=== PATIENT | male | born 1955 | race Caucasian/White ===

== ENCOUNTER 2018-03-12 13:32 | Outpatient (CLI) | payer MEDICARE | END 2018-03-12 13:33 | disposition home or self-care (01) | LOC: LAB.F 13:32 | PROVIDERS: ATTEND Internal Medicine Rheumatology | DX: M54.42 Lumbago with sciatica, left side (principal); Z79.51 Long term (current) use of inhaled steroids; M79.7 Fibromyalgia; M75.101 Unspecified rotator cuff tear or rupture of right shoulder, not specified as traumatic | CPT/HCPCS: 36415; 84550 ==

== ENCOUNTER 2018-08-04 12:03 | Outpatient (CLI) | payer MEDICARE ==
[2018-08-04 18:22] LABS: HB2 TOTAL 14.7 g/dL; HEMOGLOBIN A1C 0.43 g/dL; HEMOGLOBIN A1C % 4.8 % (4.6-6.2)
[2018-08-04 18:48] LABS: ALBUMIN/GLOBULIN RATIO 1.3 (1.0-2.2); BILIRUBIN,TOTAL 0.4 mg/dL (0.2-1.0); CALCIUM 9.1 mg/dL (8.5-10.3); CREATININE 0.7 mg/dL (0.6-1.2)
[2018-08-04 18:59] LABS: PLATELET MORPHOLOGY 1+ LARGE PLATELETS (NORMAL); RBC MORPHOLOGY (MULTIPLE) NORMAL APPEARANCE (NORMAL)
[2018-08-04 19:00] LABS: PLATELET ESTIMATE, MANUAL INCREASED (>450,000) (NORMAL)
[2018-08-04 19:02] LABS: BASOPHILS # (AUTO) 0.1 10^3/uL (0.0-0.1); BASOPHILS % (AUTO) 1.1 %; EOSINOPHILS # (AUTO) 0.1 10^3/uL (0.0-0.7); EOSINOPHILS % (AUTO) 0.6 %; LYMPHOCYTES % (AUTO) 9.1 %; MEAN CORPUSCULAR HEMOGLOBIN 27.5 pg (27.0-31.0); MEAN CORPUSCULAR HGB CONC 33.9 g/dL (32.0-36.0); MEAN CORPUSCULAR VOLUME 81.2 fL (80.0-94.0); MEAN PLATELET VOLUME 7.4 fL (7.4-11.4); MONOCYTES # (AUTO) 0.8 10^3/uL (0.0-1.0); MONOCYTES % (AUTO) 7.4 %; NEUTROPHILS # (AUTO) 9.2 10^3/uL (1.5-6.6); NEUTROPHILS % (AUTO) 81.8 %; PLT - PLATELET COUNT 791 10^3/uL (130-450); RED BLOOD COUNT 5.08 10^6/uL (4.70-6.10); RED CELL DISTRIBUTION WIDTH 14.6 % (12.0-15.0); WHITE BLOOD COUNT 11.2 x10^3/uL (4.8-10.8)
== END 2018-08-04 12:04 ==
LOC: LAB.S 12:03
PROVIDERS: ATTEND Nurse Practitioner Family
DX: R53.83 Other fatigue (principal); R06.00 Dyspnea, unspecified; Z13.1 Encounter for screening for diabetes mellitus; M53.9 Dorsopathy, unspecified; Z79.51 Long term (current) use of inhaled steroids; M54.42 Lumbago with sciatica, left side; M79.7 Fibromyalgia; M75.101 Unspecified rotator cuff tear or rupture of right shoulder, not specified as traumatic; D47.3 Essential (hemorrhagic) thrombocythemia
CPT/HCPCS: 36415; 80053; 82728; 83036; 84443; 85025; 85610; 85651

== ENCOUNTER 2018-10-08 13:27 | Outpatient (CLI) | payer MEDICARE ==
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
== END 2018-10-08 13:28 | disposition home or self-care (01) ==
LOC: DI 13:27
PROVIDERS: ATTEND Nurse Practitioner Family
DX: Z79.51 Long term (current) use of inhaled steroids (principal)
CPT/HCPCS: 77080

== ENCOUNTER 2018-12-12 16:11 | Outpatient (CLI) | payer MEDICARE ==
--- NOTE | 2018-12-13 22:19 | XRAY Report ---
Reason: KNEE JOINT PAIN > 3 MONTHS,RIGHT Procedure Date: 12/12/2018 Accession Number: [id number] / [id number] Procedure: XR - Knee 4 View RT CPT Code: FULL RESULT: EXAM: RIGHT KNEE RADIOGRAPHY EXAM DATE: 12/12/2018 05:29 PM. CLINICAL HISTORY: Right knee pain x3 months. COMPARISON: None. TECHNIQUE: 4 views. FINDINGS: Bones: No fracture or bone lesion. Joints: Normal alignment. Minimal osteophytosis along the lateral tibial spine and in the patellofemoral compartment. Joint spaces are maintained. A trace suprapatellar effusion is present. Soft Tissues: Unremarkable. IMPRESSION: 1. Minimal degenerative changes in the lateral and patellofemoral compartments. 2. Trace knee effusion. 3. No acute bony abnormality. RADIA
== END 2018-12-12 16:12 | disposition home or self-care (01) ==
LOC: DI 16:11
PROVIDERS: ATTEND Nurse Practitioner Family
DX: M17.11 Unilateral primary osteoarthritis, right knee (principal)

== ENCOUNTER 2019-04-16 10:45 | Outpatient (CLI) | payer MEDICARE ==
[2019-04-16 18:03] LABS: ALBUMIN 3.9 g/dL (3.2-5.5); ALBUMIN/GLOBULIN RATIO 1.3 (1.0-2.2); ALKALINE PHOSPHATASE 56 IU/L (42-121); ALT ALANINE AMINOTRANSFERASE 16 IU/L (10-60); AST ASPARTATE AMINOTRANSFERASE 15 IU/L (10-42); BILIRUBIN,TOTAL 0.7 mg/dL (0.2-1.0); BUN - BLOOD UREA NITROGEN 19 mg/dL (6-20); CARBON DIOXIDE - CO2 27 mmol/L (21-32); CHLORIDE 103 mmol/L (101-111); CHOLESTEROL 234 mg/dL; CREATININE 1.1 mg/dL (0.6-1.2); GFR - MDRD 67 (>89); GLUCOSE 98 mg/dL (70-100); HDL CHOLESTEROL 47 mg/dL; LDL CHOLESTEROL,CALCULATED 170 mg/dL; LDL/HDL RATIO 3.6 (<3.6); SODIUM 141 mmol/L (135-145); VLDL CHOLESTEROL 17 mg/dL
[2019-04-16 18:05] LABS: PSA SCREEN (Z12.5) 0.19 ng/mL (0.000-2.000)
[2019-04-16 18:57] LABS: BASOPHILS # (AUTO) 0.1 10^3/uL (0.0-0.1); BASOPHILS % (AUTO) 0.7 %; EOSINOPHILS # (AUTO) 0.1 10^3/uL (0.0-0.7); EOSINOPHILS % (AUTO) 1.4 %; LYMPHOCYTES # (AUTO) 1.9 10^3/uL (1.5-3.5); LYMPHOCYTES % (AUTO) 24.5 %; MEAN CORPUSCULAR HEMOGLOBIN 26.8 pg (27.0-31.0); MEAN CORPUSCULAR HGB CONC 33.8 g/dL (32.0-36.0); MEAN CORPUSCULAR VOLUME 79.4 fL (80.0-94.0); MEAN PLATELET VOLUME 6.9 fL (7.4-11.4); MONOCYTES # (AUTO) 0.7 10^3/uL (0.0-1.0); MONOCYTES % (AUTO) 9.5 %; NEUTROPHILS % (AUTO) 63.9 %; PLT - PLATELET COUNT 659 10^3/uL (130-450); RED BLOOD COUNT 5.23 10^6/uL (4.70-6.10); WHITE BLOOD COUNT 7.8 x10^3/uL (4.8-10.8)
[2019-04-16 18:59] LABS: PLATELET ESTIMATE, MANUAL INCREASED (>450,000) (NORMAL)
== END 2019-04-16 10:46 | disposition home or self-care (01) ==
LOC: LAB.F 10:45
PROVIDERS: ATTEND Nurse Practitioner Family
DX: R53.81 Other malaise (principal); Z13.220 Encounter for screening for lipoid disorders; Z12.5 Encounter for screening for malignant neoplasm of prostate
CPT/HCPCS: 36415; 80061; 84403; G0103; 80053; 83721; 84153; 84443; 85025

== ENCOUNTER 2019-06-22 07:53 | Outpatient (CLI) | payer MEDICARE ==
[2019-06-22 10:33] LABS: BASOPHILS % (AUTO) 0.4 %; EOSINOPHILS % (AUTO) 0.5 %; HGB - HEMOGLOBIN 13.7 g/dL (14.0-18.0); LYMPHOCYTES # (AUTO) 1.9 10^3/uL (1.5-3.5); LYMPHOCYTES % (AUTO) 25.8 %; MEAN CORPUSCULAR HEMOGLOBIN 27.2 pg (27.0-31.0); MEAN CORPUSCULAR HGB CONC 33.2 g/dL (32.0-36.0); MEAN CORPUSCULAR VOLUME 81.9 fL (80.0-94.0); MEAN PLATELET VOLUME 9.6 fL (7.4-11.4); MONOCYTES # (AUTO) 0.7 10^3/uL (0.0-1.0); MONOCYTES % (AUTO) 9.1 %; NEUTROPHILS # (AUTO) 4.7 10^3/uL (1.5-6.6); NEUTROPHILS % (AUTO) 63.7 %; PLT - PLATELET COUNT 731 10^3/uL (130-450); RED BLOOD COUNT 5.04 10^6/uL (4.70-6.10); RED CELL DISTRIBUTION WIDTH 14.4 % (12.0-15.0); WHITE BLOOD COUNT 7.3 x10^3/uL (4.8-10.8)
[2019-06-22 10:44] LABS: ALBUMIN 3.8 g/dL (3.2-5.5); ALBUMIN/GLOBULIN RATIO 1.3 (1.0-2.2); ALKALINE PHOSPHATASE 53 IU/L (42-121); ALT ALANINE AMINOTRANSFERASE 15 IU/L (10-60); AST ASPARTATE AMINOTRANSFERASE 12 IU/L (10-42); BILIRUBIN,TOTAL 0.7 mg/dL (0.2-1.0); BUN - BLOOD UREA NITROGEN 23 mg/dL (6-20); CALCIUM 9.2 mg/dL (8.5-10.3); CARBON DIOXIDE - CO2 27 mmol/L (21-32); CHLORIDE 107 mmol/L (101-111); CHOL/HDL RATIO 4.2 (<5.0); CHOLESTEROL 225 mg/dL; CREATININE 1.1 mg/dL (0.6-1.2); GFR - MDRD 67 (>89); GLUCOSE 100 mg/dL (70-100); HDL CHOLESTEROL 53 mg/dL; LDL CHOLESTEROL,CALCULATED 150 mg/dL; LDL/HDL RATIO 2.8 (<3.6); SODIUM 145 mmol/L (135-145); TOTAL PROTEIN 6.7 g/dL (6.7-8.2); VLDL CHOLESTEROL 22 mg/dL
== END 2019-06-22 07:54 | disposition home or self-care (01) ==
LOC: LAB.S 07:53
PROVIDERS: ATTEND Internal Medicine
DX: Z00.00 Encounter for general adult medical examination without abnormal findings (principal); Z12.5 Encounter for screening for malignant neoplasm of prostate; D47.3 Essential (hemorrhagic) thrombocythemia
CPT/HCPCS: 36415; 80053; 80061; 85025; G0103; 83721; 84153

== ENCOUNTER 2019-07-06 17:16 | Emergency (ER) | payer MEDICARE ==
[2019-07-06] MEDS ORDERED: AMOX/CLAV 875 MG/125 MG TABLET PO STA (20:03)
[2019-07-06] MEDS ORDERED: IBUPROFEN 600 MG TABLET PO STA (20:04)
--- NOTE | 2019-07-06 20:07 | ED Physician Documentation ---
PD HPI HEENT - Stated complaint Stated Complaint: TOOTH PAIN - Chief complaint Chief Complaint: Heent - History obtained from History obtained from: Patient - History of Present Illness Timing - onset: Today Timing - details: Gradual onset Location: Tooth Improves: Nothing Associated symptoms: No: Fever, Congestion Recently seen: Not recently seen - Additional information Additional information: There is a 64-year-old man who presents with his complains that his teeth are coming apart. He has already had a root canal on this tooth and a crowned on the one in front of it 3 or 4 years ago. The tooth broke this morning now it feels really puffy does not have a whole lot of pain because he is Blake had a root canal. He is concerned that his throat might close to night while he sleeping because it so rapidly progressed. He is already having a little difficulty swallowing but is swallowing water here in the department. No fever. Both his dentist and doctor on vacation. Review of Systems Constitutional: denies: Fever Ears: denies: Ear pain Nose: denies: Congestion Throat: reports: Dental pain / toothache Respiratory: denies: Dyspnea PD PAST MEDICAL HISTORY - Past Medical History Cardiovascular: High cholesterol Respiratory: Asthma Neuro: Migraines Endocrine/Autoimmune: None GI: GERD, Hemorrhoids : None HEENT: Other Psych: Depression, Anxiety, Panic attacks, ADD/ADHD, Post traumatic stress disorder, Claustrophobia, Obsessive compulsive disorder Musculoskeletal: Osteoarthritis, Fibromyalgia, Fatigue, Chronic back pain Derm: Other - Past Surgical History Ortho: Other HEENT: Detached retina repair, Tonsil/Adenoidectomy - Present Medications Home Medications: Ambulatory Orders Medication Instructions Recorded Confirmed Albuterol Sulfate [Proair 2 inh ORAL Q4HR PRN 08/13/18 08/27/18 Respiclick] RX: Trazodone HCl 3 tab ORAL DAILY 08/13/18 08/27/18 diazePAM [Diazepam] 1 tab ORAL PRN PRN 08/13/18 08/27/18 predniSONE [Prednisone] 1 tab ORAL DAILY 08/13/18 08/27/18 Amox/Clav 875/125 [Augmentin] 1 each PO Q12H #20 tablet 07/06/19 RX: Amoxicillin 500 mg PO TID #30 capsule 07/06/19 - Allergies Allergies/Adverse Reactions: Allergies Allergy/AdvReac Type Severity Reaction Status Date / Time Iodine and Iodide Containing Allergy Anaphylaxis Verified 07/06/19 17:44 Produc shellfish derived Allergy Anaphylaxis Verified 07/06/19 17:44 Sulfa (Sulfonamide Allergy Anaphylaxis Verified 07/06/19 17:44 Antibiotics) venlafaxine Allergy Anaphylaxis Verified 07/06/19 17:44 - Social History Does the pt smoke?: No Smoking Status: Never smoker PD ED PE NORMAL - Vitals Vital signs reviewed: Yes - General General: Alert and oriented X 3, No acute distress, Well developed/nourished - HEENT HEENT: Atraumatic, Moist mucous membranes, Other (He has several cavities. The left maxillary most posterior molar looks like it is fractured. There is erythema and edema on hard palate and around the base of the tooth. He does not have a significant amount of pain.) - Neck Neck: Supple, no meningeal sign, No adenopathy - Respiratory Respiratory: No respiratory distress Results - Vitals Vitals: Vital Signs - 24 hr 07/06/19 07/06/19 17:43 20:38 Temperature 36.6 C 37.1 C Heart Rate 102 H 78 Respiratory 20 17 Rate Blood Pressure 134/88 H 141/71 H O2 Saturation 96 98 Oxygen O2 Source Room air PD MEDICAL DECISION MAKING - ED course Complexity details: d/w patient ED course: Patient will be placed on Augmentin and encouraged to use ibuprofen. He is concerned about the cost of the Augmentin and will be given a back-up prescription for amoxicillin if it is too expensive. Departure - Departure Disposition: 01 Home, Self Care Clinical Impression: Dental infection Condition: Good Instructions: ED Tooth Pain Follow-Up: Heron Ortega MD [Primary Care Provider] - Prescriptions: Amox/Clav 875/125 [Augmentin] 1 each PO Q12H #20 tablet RX: Amoxicillin 500 mg PO TID #30 capsule Comments: Salt water swishes 3 times a day. Take the Augmentin twice a day as prescribed. If it is too expensive he can fill the amoxicillin and take it 3 times a day. Use ibuprofen up to 3 to 4 tablets every 8 hours with food for the pain. Follow-up with your primary dentist for definitive care. Return if you have increasing swelling, fever, vomiting or other problems arise. Discharge Date/Time: 07/06/19 20:38
[2019-07-06 20:39] VITALS: BP 141/71
== END 2019-07-06 20:38 | disposition home or self-care (01) ==
LOC: ED 17:16
DX: K04.7 Periapical abscess without sinus (principal); K02.9 Dental caries, unspecified
CPT/HCPCS: 99282; 99283; A9270

== ENCOUNTER 2019-07-29 19:15 | Emergency (ER) | payer MEDICARE, OTHER ==
[2019-07-29 19:32] VITALS: BP 153/91
[2019-07-29] MEDS ORDERED: DEXAMETHASONE 10 MG/ML VIAL PO STA (22:45)
[2019-07-29] MEDS ORDERED: CHERRY SYRUP 10 ML UDC PO ONE (22:45)
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
== END 2019-07-29 23:07 | disposition home or self-care (01) ==
LOC: ED 19:15
DX: S10.93XA Contusion of unspecified part of neck, initial encounter (principal); S20.211A Contusion of right front wall of thorax, initial encounter; S60.221A Contusion of right hand, initial encounter; S80.12XA Contusion of left lower leg, initial encounter; S50.12XA Contusion of left forearm, initial encounter; M54.6 Pain in thoracic spine; Y04.2XXA Assault by strike against or bumped into by another person, initial encounter
CPT/HCPCS: 99282; A9270

== ENCOUNTER 2019-09-25 15:14 | Outpatient (CLI) | payer MEDICARE, OTHER ==
[2019-09-25 18:57] LABS: BASOPHILS % (AUTO) 0.5 %; EOSINOPHILS % (AUTO) 0.3 %; HGB - HEMOGLOBIN 13.5 g/dL (14.0-18.0); LYMPHOCYTES # (AUTO) 0.7 10^3/uL (1.5-3.5); LYMPHOCYTES % (AUTO) 9.7 %; MEAN CORPUSCULAR HEMOGLOBIN 26.2 pg (27.0-31.0); MEAN CORPUSCULAR HGB CONC 31.7 g/dL (32.0-36.0); MEAN CORPUSCULAR VOLUME 82.6 fL (80.0-94.0); MEAN PLATELET VOLUME 8.4 fL (7.4-11.4); MONOCYTES # (AUTO) 0.4 10^3/uL (0.0-1.0); MONOCYTES % (AUTO) 5.9 %; NEUTROPHILS # (AUTO) 6.2 10^3/uL (1.5-6.6); NEUTROPHILS % (AUTO) 83.1 %; RED BLOOD COUNT 5.16 10^6/uL (4.70-6.10); RED CELL DISTRIBUTION WIDTH 14.2 % (12.0-15.0); WHITE BLOOD COUNT 7.4 x10^3/uL (4.8-10.8)
[2019-09-25 19:33] LABS: CALCIUM 9.7 mg/dL (8.5-10.3)
[2019-09-25 20:06] LABS: ALBUMIN/GLOBULIN RATIO 1.1 (1.0-2.2); BILIRUBIN,TOTAL 0.7 mg/dL (0.2-1.0); CREATININE 1.2 mg/dL (0.6-1.2); TOTAL PROTEIN 7.5 g/dL (6.7-8.2)
[2019-09-25 21:22] LABS: PLT - PLATELET COUNT 815 10^3/uL (130-450)
[2019-09-25 22:37] LABS: PLATELET ESTIMATE, MANUAL INCREASED (>450,000) (NORMAL); PLATELET MORPHOLOGY RARE GIANT PLATELETS (NORMAL); RBC MORPHOLOGY (MULTIPLE) NORMAL APPEARANCE (NORMAL)
== END 2019-09-25 15:15 | disposition home or self-care (01) ==
LOC: LAB.S 15:14
PROVIDERS: ATTEND Internal Medicine
DX: R53.83 Other fatigue (principal)
CPT/HCPCS: 36415; 80053; 84443; 85025

== ENCOUNTER 2019-11-11 12:36 | Outpatient (CLI) | payer MEDICARE, OTHER ==
[2019-11-11 12:57] LABS: BASOPHILS % (AUTO) 0.5 %; EOSINOPHILS # (AUTO) 0.1 10^3/uL (0.0-0.7); EOSINOPHILS % (AUTO) 1.9 %; HGB - HEMOGLOBIN 12.9 g/dL (14.0-18.0); LYMPHOCYTES # (AUTO) 1.3 10^3/uL (1.5-3.5); LYMPHOCYTES % (AUTO) 21.4 %; MEAN CORPUSCULAR HEMOGLOBIN 26.1 pg (27.0-31.0); MEAN CORPUSCULAR HGB CONC 32.1 g/dL (32.0-36.0); MEAN CORPUSCULAR VOLUME 81.4 fL (80.0-94.0); MEAN PLATELET VOLUME 8.7 fL (7.4-11.4); MONOCYTES # (AUTO) 0.7 10^3/uL (0.0-1.0); MONOCYTES % (AUTO) 11.1 %; NEUTROPHILS # (AUTO) 3.8 10^3/uL (1.5-6.6); NEUTROPHILS % (AUTO) 64.6 %; PLT - PLATELET COUNT 221 10^3/uL (130-450); RED BLOOD COUNT 4.94 10^6/uL (4.70-6.10); RED CELL DISTRIBUTION WIDTH 14.3 % (12.0-15.0); WHITE BLOOD COUNT 5.9 x10^3/uL (4.8-10.8)
[2019-11-11 13:12] LABS: ALBUMIN/GLOBULIN RATIO 1.2 (1.0-2.2); BILIRUBIN,TOTAL 0.8 mg/dL (0.2-1.0); CALCIUM 8.9 mg/dL (8.5-10.3); CREATININE 1.3 mg/dL (0.6-1.2); TOTAL PROTEIN 7.3 g/dL (6.7-8.2)
== END 2019-11-11 12:37 | disposition home or self-care (01) ==
LOC: LAB 12:36
PROVIDERS: ATTEND Internal Medicine
DX: B35.1 Tinea unguium (principal); D47.3 Essential (hemorrhagic) thrombocythemia
CPT/HCPCS: 36415; 80053; 85025

== ENCOUNTER 2020-04-27 16:01 | Outpatient (CLI) | payer MEDICARE, OTHER ==
[2020-04-27 16:17] LABS: BASOPHILS # (AUTO) 0.1 10^3/uL (0.0-0.1); BASOPHILS % (AUTO) 0.8 %; EOSINOPHILS # (AUTO) 0.1 10^3/uL (0.0-0.7); HGB - HEMOGLOBIN 14.2 g/dL (14.0-18.0); LYMPHOCYTES # (AUTO) 0.9 10^3/uL (1.5-3.5); LYMPHOCYTES % (AUTO) 14.4 %; MEAN CORPUSCULAR HEMOGLOBIN 27.1 pg (27.0-31.0); MEAN CORPUSCULAR HGB CONC 33.4 g/dL (32.0-36.0); MEAN CORPUSCULAR VOLUME 81.1 fL (80.0-94.0); MEAN PLATELET VOLUME 9.1 fL (7.4-11.4); MONOCYTES # (AUTO) 0.6 10^3/uL (0.0-1.0); NEUTROPHILS # (AUTO) 4.5 10^3/uL (1.5-6.6); NEUTROPHILS % (AUTO) 73.5 %; PLT - PLATELET COUNT 303 10^3/uL (130-450); RED BLOOD COUNT 5.24 10^6/uL (4.70-6.10); WHITE BLOOD COUNT 6.1 x10^3/uL (4.8-10.8)
[2020-04-27 16:27] LABS: ALBUMIN 3.9 g/dL (3.2-5.5); BILIRUBIN,TOTAL 0.7 mg/dL (0.2-1.0); CALCIUM 9.1 mg/dL (8.5-10.3); TOTAL PROTEIN 7.8 g/dL (6.7-8.2)
== END 2020-04-27 16:02 | disposition home or self-care (01) ==
LOC: LAB 16:01
PROVIDERS: ATTEND Family Medicine
DX: B35.1 Tinea unguium (principal); D47.3 Essential (hemorrhagic) thrombocythemia
CPT/HCPCS: 36415; 80053; 85025

== ENCOUNTER 2020-05-19 08:00 | Outpatient (CLI) | payer MEDICARE, OTHER | END 2020-05-19 23:59 | disposition home or self-care (01) | LOC: LAB 08:00 | PROVIDERS: ATTEND Physician Assistant Medical | DX: Z20.828 Contact with and (suspected) exposure to other viral communicable diseases (principal); R06.89 Other abnormalities of breathing | CPT/HCPCS: 81599 ==

== ENCOUNTER 2020-05-19 19:40 | Outpatient (CLI) | payer MEDICARE, OTHER ==
[2020-05-19 20:31] LABS: BASOPHILS % (AUTO) 0.3 %; EOSINOPHILS # (AUTO) 0.1 10^3/uL (0.0-0.7); LYMPHOCYTES # (AUTO) 0.9 10^3/uL (1.5-3.5); MEAN CORPUSCULAR HEMOGLOBIN 26.7 pg (27.0-31.0); MEAN CORPUSCULAR HGB CONC 33.3 g/dL (32.0-36.0); MEAN CORPUSCULAR VOLUME 80.3 fL (80.0-94.0); MEAN PLATELET VOLUME 10.3 fL (7.4-11.4); MONOCYTES # (AUTO) 0.5 10^3/uL (0.0-1.0); MONOCYTES % (AUTO) 7.7 %; NEUTROPHILS # (AUTO) 4.3 10^3/uL (1.5-6.6); NEUTROPHILS % (AUTO) 74.7 %; PLT - PLATELET COUNT 457 10^3/uL (130-450); RED BLOOD COUNT 5.24 10^6/uL (4.70-6.10); RED CELL DISTRIBUTION WIDTH 14.7 % (12.0-15.0); WHITE BLOOD COUNT 5.8 x10^3/uL (4.8-10.8)
[2020-05-19 20:36] LABS: ALBUMIN 3.9 g/dL (3.2-5.5); ALBUMIN/GLOBULIN RATIO 1.6 (1.0-2.2); BILIRUBIN,TOTAL 0.9 mg/dL (0.2-1.0); CALCIUM 8.7 mg/dL (8.5-10.3); CREATININE 1.1 mg/dL (0.6-1.2); TOTAL PROTEIN 6.3 g/dL (6.7-8.2)
--- NOTE | 2020-05-20 08:45 | XRAY Report ---
PROCEDURE: Chest 2 View X-Ray INDICATIONS: DECREASED LUNG SOUNDS TECHNIQUE: 2 view(s) of the chest. COMPARISON: None. FINDINGS: Surgical changes and devices: None. Lungs and pleura: No pleural effusions or pneumothorax. Lungs are clear. Mediastinum: Mediastinal contours are normal. Heart size is normal. Bones and chest wall: No suspicious bony abnormalities. Soft tissues appear unremarkable. IMPRESSION: No acute cardiopulmonary pathology. Reviewed by: Axel Stephens MD on 05/20/2020 8:44 AM PDT Approved by: Axel Stephens MD on 05/20/2020 8:44 AM PDT Station ID: [id number]
== END 2020-05-19 23:59 | disposition home or self-care (01) ==
LOC: DI.S 19:40
PROVIDERS: ATTEND Physician Assistant Medical
DX: R06.89 Other abnormalities of breathing (principal); Z20.828 Contact with and (suspected) exposure to other viral communicable diseases
CPT/HCPCS: 36415; 71046; 80053; 85025

== ENCOUNTER 2020-09-26 10:50 | Outpatient (CLI) | payer MEDICARE ==
[2020-09-26 15:47] LABS: ALBUMIN 3.8 g/dL (3.2-5.5); ALBUMIN/GLOBULIN RATIO 1.2 (1.0-2.2); ALKALINE PHOSPHATASE 60 IU/L (42-121); ALT ALANINE AMINOTRANSFERASE 19 IU/L (10-60); AST ASPARTATE AMINOTRANSFERASE 15 IU/L (10-42); BILIRUBIN,TOTAL 0.4 mg/dL (0.2-1.0); BUN - BLOOD UREA NITROGEN 16 mg/dL (6-20); CALCIUM 9.1 mg/dL (8.5-10.3); CARBON DIOXIDE - CO2 28 mmol/L (21-32); CHLORIDE 107 mmol/L (101-111); CHOL/HDL RATIO 5.1 (<5.0); CHOLESTEROL 248 mg/dL; CREATININE 1.2 mg/dL (0.6-1.2); GLUCOSE 99 mg/dL (70-100); HDL CHOLESTEROL 49 mg/dL; LDL CHOLESTEROL,CALCULATED 174 mg/dL; LDL/HDL RATIO 3.6 (<3.6); SODIUM 142 mmol/L (135-145); TOTAL PROTEIN 6.9 g/dL (6.7-8.2); VLDL CHOLESTEROL 25 mg/dL
[2020-09-26 18:19] LABS: HEMOGLOBIN A1c% 4.5 % (4.27-6.07)
== END 2020-09-26 10:51 | disposition home or self-care (01) ==
LOC: LAB.S 10:50
PROVIDERS: ATTEND Family Medicine
DX: R73.01 Impaired fasting glucose (principal); I70.0 Atherosclerosis of aorta
CPT/HCPCS: 36415; 80053; 80061; 83036; 83721

== ENCOUNTER 2020-10-05 15:20 | Outpatient (CLI) | payer MEDICARE | END 2020-10-05 15:21 | disposition home or self-care (01) | LOC: LAB 15:20 | PROVIDERS: ATTEND Internal Medicine Hematology & Oncology | DX: D47.2 Monoclonal gammopathy (principal) | CPT/HCPCS: 36415; 81599; 82784; 83883; 84155; 84165; 86334 ==

== ENCOUNTER 2021-05-19 09:24 | Outpatient (CLI) | payer MEDICARE ==
[2021-05-19 10:08] LABS: CHOLESTEROL 155 mg/dL; HDL CHOLESTEROL 52 mg/dL; LDL CHOLESTEROL,CALCULATED 86 mg/dL; LDL/HDL RATIO 1.7 (<3.6); TRIGLYCERIDES 85 mg/dL; VLDL CHOLESTEROL 17 mg/dL
[2021-05-19 11:52] LABS: ESTIMATED AVERAGE GLUCOSE 91 mg/dL (70-100); HEMOGLOBIN A1c% 4.8 % (4.27-6.07)
== END 2021-05-19 09:25 | disposition home or self-care (01) ==
LOC: LAB 09:24
PROVIDERS: ATTEND Family Medicine
DX: E78.5 Hyperlipidemia, unspecified (principal); R73.01 Impaired fasting glucose
CPT/HCPCS: 36415; 80061; 83036; 83721

== ENCOUNTER 2023-02-01 13:08 | Outpatient (CLI) | payer MEDICARE ==
--- NOTE | 2023-02-01 15:11 | XRAY Report ---
PROCEDURE: Hip w/Pelvis 2-3V LT INDICATIONS: HIP PAIN TECHNIQUE: AP pelvis with lateral view(s) of the left hip(s). COMPARISON: None. FINDINGS: Moderate bilateral hip osteoarthritis characterized by joint space narrowing and marginal osteophytos is along with subchondral sclerosis of the articular surfaces. Osteophytic overgrowth of the lateral femoral head neck junctions, left greater the right, creating cam-type SABRINA morphology. Suspicious lyt ic or blastic bone. Regional soft tissues normal. IMPRESSION: Moderate bilateral hip osteoarthritis, left greater than right, with mild cam-type SABRINA mo rphology. Reviewed by: Hudson Pacheco MD on 02/01/2023 3:10 PM PST Approved by: Hudson Pacheco MD on 02/01/2023 3:10 PM PST Station ID: [id number]
== END 2023-02-01 13:09 | disposition home or self-care (01) ==
LOC: DI 13:08
PROVIDERS: ATTEND Nurse Practitioner Family
DX: M16.0 Bilateral primary osteoarthritis of hip (principal)

== ENCOUNTER 2023-06-04 10:17 | Outpatient (CLI) | payer MEDICARE | END 2023-06-04 23:59 | disposition critical access hospital (66) | LOC: EMS 10:17 | DX: R29.810 Facial weakness (principal); R20.0 Anesthesia of skin | CPT/HCPCS: A0425; A0429 ==

== ENCOUNTER 2023-06-04 10:51 | Observation (INO) | payer MEDICARE ==
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
[2023-06-04] MEDS ORDERED: SODIUM CHLORIDE 0.9% 1,000 ML IV STA (11:08)
--- OUTSIDE RECORDS SUMMARY | 2023-06-04 11:23 | EXTERNAL MEDICAL SUMMARY RPT | Continuity of Care Document ---
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, unspecified All 2023-03-25 00:00 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 All 2023-03-25 00:00 Chronic low back pain All 2023-03-25 00:00 Lumbago All 2023-03-25 00:00 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 All 2023-03-25 00:00 Low back pain All 2023-03-25 00:00 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, unspecified All 2023-03-26 00:00 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 All 2023-03-26 00:00 Chronic low back pain All 2023-03-26 00:00 Lumbago All 2023-03-26 00:00 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 All 2023-03-26 00:00 Low back pain All 2023-03-26 00:00 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, unspecified All 2023-03-27 00:00 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 All 2023-03-27 00:00 Chronic low back pain All 2023-03-27 00:00 Lumbago All 2023-03-27 00:00 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 All 2023-03-27 00:00 Low back pain All 2023-03-27 00:00 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, unspecified All 2023-03-28 00:00 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 All 2023-03-28 00:00 Chronic low back pain All 2023-03-28 00:00 Lumbago All 2023-03-28 00:00 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 All 2023-03-28 00:00 Low back pain All 2023-03-28 00:00 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, unspecified All Results/Labs test date author facility value unit interpretation Result panel 1 (unknown) (no date) (unknown) All (no value) (units unknown) (unknown) Result panel 2 (unknown) (no date) (unknown) All (no value) (units unknown) (unknown) Result panel 3 (unknown) (no date) (unknown) All (no value) (units unknown) (unknown) Result panel 4 (unknown) (no date) (unknown) All (no value) (units unknown) (unknown) Result panel 5 (unknown) (no date) (unknown) All (no value) (units unknown) (unknown) Result panel 6 (unknown) (no date) (unknown) All (no value) (units unknown) (unknown) Result panel 7 (unknown) (no date) (unknown) All (no value) (units unknown) (unknown) Result panel 8 (unknown) (no date) (unknown) All (no value) (units unknown) (unknown) Result panel 9 (unknown) (no date) (unknown) All (no value) (units unknown) (unknown) Result panel 10 (unknown) (no date) (unknown) All (no value) (units unknown) (unknown) Result panel 11 (unknown) (no date) (unknown) All (no value) (units unknown) (unknown) Result panel 12 (unknown) (no date) (unknown) All (no value) (units unknown) (unknown) Result panel 13 (unknown) (no date) (unknown) All (no value) (units unknown) (unknown) Result panel 14 (unknown) (no date) (unknown) All (no value) (units unknown) (unknown) Result panel 15 (unknown) (no date) (unknown) All (no value) (units unknown) (unknown) Result panel 16 (unknown) (no date) (unknown) All (no value) (units unknown) (unknown) Result panel 17 (unknown) (no date) (unknown) All (no value) (units unknown) (unknown) Result panel 18 (unknown) (no date) (unknown) All (no value) (units unknown) (unknown) Result panel 19 (unknown) (no date) (unknown) All (no value) (units unknown) (unknown) Result panel 20 (unknown) (no date) (unknown) All (no value) (units unknown) (unknown) Result panel 21 (unknown) (no date) (unknown) All (no value) (units unknown) (unknown) Result panel 22 (unknown) (no date) (unknown) All (no value) (units unknown) (unknown) Result panel 23 (unknown) (no date) (unknown) All (no value) (units unknown) (unknown) Result panel 24 (unknown) (no date) (unknown) All (no value) (units unknown) (unknown) Result panel 25 (unknown) (no date) (unknown) All (no value) (units unknown) (unknown) Result panel 26 (unknown) (no date) (unknown) All (no value) (units unknown) (unknown) Result panel 27 (unknown) (no date) (unknown) All (no value) (units unknown) (unknown) Result panel 28 (unknown) (no date) (unknown) All (no value) (units unknown) (unknown) Result panel 29 (unknown) (no date) (unknown) All (no value) (units unknown) (unknown) Result panel 30 (unknown) (no date) (unknown) All (no value) (units unknown) (unknown) Result panel 31 (unknown) (no date) (unknown) All (no value) (units unknown) (unknown) Result panel 32 (unknown) (no date) (unknown) All (no value) (units unknown) (unknown) Result panel 33 (unknown) (no date) (unknown) All (no value) (units unknown) (unknown) Result panel 34 (unknown) (no date) (unknown) All (no value) (units unknown) (unknown) Result panel 35 (unknown) (no date) (unknown) All (no value) (units unknown) (unknown) Result panel 36 (unknown) (no date) (unknown) All (no value) (units unknown) (unknown) Result panel 37 (unknown) (no date) (unknown) All (no value) (units unknown) (unknown) Result panel 38 (unknown) (no date) (unknown) All (no value) (units unknown) (unknown) Result panel 39 (unknown) (no date) (unknown) All (no value) (units unknown) (unknown) Result panel 40 (unknown) (no date) (unknown) All (no value) (units unknown) (unknown) Result panel 41 (unknown) (no date) (unknown) All (no value) (units unknown) (unknown) Result panel 42 (unknown) (no date) (unknown) All (no value) (units unknown) (unknown) Result panel 43 (unknown) (no date) (unknown) All (no value) (units unknown) (unknown) Result panel 44 (unknown) (no date) (unknown) All (no value) (units unknown) (unknown) Result panel 45 (unknown) (no date) (unknown) All (no value) (units unknown) (unknown) Result panel 46 (unknown) (no date) (unknown) All (no value) (units unknown) (unknown) Result panel 47 (unknown) (no date) (unknown) All (no value) (units unknown) (unknown) Result panel 48 (unknown) (no date) (unknown) All (no value) (units unknown) (unknown) Result panel 49 (unknown) (no date) (unknown) All (no value) (units unknown) (unknown) Result panel 50 (unknown) (no date) (unknown) All (no value) (units unknown) (unknown) Result panel 51 (unknown) (no date) (unknown) All (no value) (units unknown) (unknown) Result panel 52 (unknown) (no date) (unknown) All (no value) (units unknown) (unknown) Result panel 53 (unknown) (no date) (unknown) All (no value) (units unknown) (unknown) Result panel 54 (unknown) (no date) (unknown) All (no value) (units unknown) (unknown) Result panel 55 (unknown) (no date) (unknown) All (no value) (units unknown) (unknown) Result panel 56 (unknown) (no date) (unknown) All (no value) (units unknown) (unknown) Result panel 57 (unknown) (no date) (unknown) All (no value) (units unknown) (unknown) Result panel 58 (unknown) (no date) (unknown) All (no value) (units unknown) (unknown) Result panel 59 (unknown) (no date) (unknown) All (no value) (units unknown) (unknown) Result panel 60 (unknown) (no date) (unknown) All (no value) (units unknown) (unknown) Result panel 61 (unknown) (no date) (unknown) All (no value) (units unknown) (unknown) Result panel 62 (unknown) (no date) (unknown) All (no value) (units unknown) (unknown) Result panel 63 (unknown) (no date) (unknown) All (no value) (units unknown) (unknown) Result panel 64 (unknown) (no date) (unknown) All (no value) (units unknown) (unknown) Result panel 65 (unknown) (no date) (unknown) All (no value) (units unknown) (unknown) Result panel 66 (unknown) (no date) (unknown) All (no value) (units unknown) (unknown) Result panel 67 (unknown) (no date) (unknown) All (no value) (units unknown) (unknown) Result panel 68 (unknown) (no date) (unknown) All (no value) (units unknown) (unknown) Result panel 69 (unknown) (no date) (unknown) All (no value) (units unknown) (unknown) Result panel 70 (unknown) (no date) (unknown) All (no value) (units unknown) (unknown) Result panel 71 (unknown) (no date) (unknown) All (no value) (units unknown) (unknown) Result panel 72 (unknown) (no date) (unknown) All (no value) (units unknown) (unknown) Result panel 73 (unknown) (no date) (unknown) All (no value) (units unknown) (unknown) Result panel 74 (unknown) (no date) (unknown) All (no value) (units unknown) (unknown) Result panel 75 (unknown) (no date) (unknown) All (no value) (units unknown) (unknown) Result panel 76 (unknown) (no date) (unknown) All (no value) (units unknown) (unknown) Result panel 77 (unknown) (no date) (unknown) All (no value) (units unknown) (unknown) Result panel 78 (unknown) (no date) (unknown) All (no value) (units unknown) (unknown) Result panel 79 (unknown) (no date) (unknown) All (no value) (units unknown) (unknown) Result panel 80 (unknown) (no date) (unknown) All (no value) (units unknown) (unknown) Result panel 81 (unknown) (no date) (unknown) All (no value) (units unknown) (unknown) Result panel 82 (unknown) (no date) (unknown) All (no value) (units unknown) (unknown) Result panel 83 (unknown) (no date) (unknown) All (no value) (units unknown) (unknown) Result panel 84 (unknown) (no date) (unknown) All (no value) (units unknown) (unknown) Result panel 85 (unknown) (no date) (unknown) All (no value) (units unknown) (unknown) Result panel 86 (unknown) (no date) (unknown) All (no value) (units unknown) (unknown) Result panel 87 (unknown) (no date) (unknown) All (no value) (units unknown) (unknown) Result panel 88 (unknown) (no date) (unknown) All (no value) (units unknown) (unknown) Result panel 89 (unknown) (no date) (unknown) All (no value) (units unknown) (unknown) Result panel 90 (unknown) (no date) (unknown) All (no value) (units unknown) (unknown) Result panel 91 (unknown) (no date) (unknown) All (no value) (units unknown) (unknown) Result panel 92 (unknown) (no date) (unknown) All (no value) (units unknown) (unknown) Result panel 93 (unknown) (no date) (unknown) All (no value) (units unknown) (unknown) Result panel 94 (unknown) (no date) (unknown) All (no value) (units unknown) (unknown) Result panel 95 (unknown) (no date) (unknown) All (no value) (units unknown) (unknown) Result panel 96 (unknown) (no date) (unknown) All (no value) (units unknown) (unknown) Result panel 97 (unknown) (no date) (unknown) All (no value) (units unknown) (unknown) Result panel 98 (unknown) (no date) (unknown) All (no value) (units unknown) (unknown) Result panel 99 (unknown) (no date) (unknown) All (no value) (units unknown) (unknown) Result panel 100 (unknown) (no date) (unknown) All (no value) (units unknown) (unknown) Result panel 101 (unknown) (no date) (unknown) All (no value) (units unknown) (unknown) Result panel 102 (unknown) (no date) (unknown) All (no value) (units unknown) (unknown) Result panel 103 (unknown) (no date) (unknown) All (no value) (units unknown) (unknown) Result panel 104 (unknown) (no date) (unknown) All (no value) (units unknown) (unknown) Result panel 105 (unknown) (no date) (unknown) All (no value) (units unknown) (unknown) Result panel 106 (unknown) (no date) (unknown) All (no value) (units unknown) (unknown) Result panel 107 (unknown) (no date) (unknown) All (no value) (units unknown) (unknown) Result panel 108 (unknown) (no date) (unknown) All (no value) (units unknown) (unknown) Result panel 109 (unknown) (no date) (unknown) All (no value) (units unknown) (unknown) Result panel 110 (unknown) (no date) (unknown) All (no value) (units unknown) (unknown) Result panel 111 (unknown) (no date) (unknown) All (no value) (units unknown) (unknown) Result panel 112 (unknown) (no date) (unknown) All (no value) (units unknown) (unknown) Result panel 113 (unknown) (no date) (unknown) All (no value) (units unknown) (unknown) Result panel 114 (unknown) (no date) (unknown) All (no value) (units unknown) (unknown) Result panel 115 (unknown) (no date) (unknown) All (no value) (units unknown) (unknown) Result panel 116 (unknown) (no date) (unknown) All (no value) (units unknown) (unknown) Result panel 117 (unknown) (no date) (unknown) All (no value) (units unknown) (unknown) Result panel 118 (unknown) (no date) (unknown) All (no value) (units unknown) (unknown) Result panel 119 (unknown) (no date) (unknown) All (no value) (units unknown) (unknown) Result panel 120 (unknown) (no date) (unknown) All (no value) (units unknown) (unknown) Result panel 121 (unknown) (no date) (unknown) All (no value) (units unknown) (unknown) Result panel 122 (unknown) (no date) (unknown) All (no value) (units unknown) (unknown) Result panel 123 (unknown) (no date) (unknown) All (no value) (units unknown) (unknown) Result panel 124 (unknown) (no date) (unknown) All (no value) (units unknown) (unknown) Result panel 125 (unknown) (no date) (unknown) All (no value) (units unknown) (unknown) Result panel 126 (unknown) (no date) (unknown) All (no value) (units unknown) (unknown) Result panel 127 (unknown) (no date) (unknown) All (no value) (units unknown) (unknown) Result panel 128 (unknown) (no date) (unknown) All (no value) (units unknown) (unknown) Result panel 129 (unknown) (no date) (unknown) All (no value) (units unknown) (unknown) Result panel 130 (unknown) (no date) (unknown) All (no value) (units unknown) (unknown) Result panel 131 (unknown) (no date) (unknown) All (no value) (units unknown) (unknown) Result panel 132 (unknown) (no date) (unknown) All (no value) (units unknown) (unknown) Result panel 133 (unknown) (no date) (unknown) All (no value) (units unknown) (unknown) Result panel 134 (unknown) (no date) (unknown) All (no value) (units unknown) (unknown) Result panel 135 (unknown) (no date) (unknown) All (no value) (units unknown) (unknown) Result panel 136 (unknown) (no date) (unknown) All (no value) (units unknown) (unknown) Result panel 137 (unknown) (no date) (unknown) All (no value) (units unknown) (unknown) Result panel 138 (unknown) (no date) (unknown) All (no value) (units unknown) (unknown) Result panel 139 (unknown) (no date) (unknown) All (no value) (units unknown) (unknown) Result panel 140 (unknown) (no date) (unknown) All (no value) (units unknown) (unknown) Result panel 141 (unknown) (no date) (unknown) All (no value) (units unknown) (unknown) Result panel 142 (unknown) (no date) (unknown) All (no value) (units unknown) (unknown) Result panel 143 (unknown) (no date) (unknown) All (no value) (units unknown) (unknown) Result panel 144 (unknown) (no date) (unknown) All (no value) (units unknown) (unknown) Result panel 145 (unknown) (no date) (unknown) All (no value) (units unknown) (unknown) Result panel 146 (unknown) (no date) (unknown) All (no value) (units unknown) (unknown) Result panel 147 (unknown) (no date) (unknown) All (no value) (units unknown) (unknown) Result panel 148 (unknown) (no date) (unknown) All (no value) (units unknown) (unknown) Result panel 149 (unknown) (no date) (unknown) All (no value) (units unknown) (unknown) Result panel 150 (unknown) (no date) (unknown) All (no value) (units unknown) (unknown) Result panel 151 (unknown) (no date) (unknown) All (no value) (units unknown) (unknown) Result panel 152 (unknown) (no date) (unknown) All (no value) (units unknown) (unknown) Result panel 153 (unknown) (no date) (unknown) All (no value) (units unknown) (unknown) Result panel 154 (unknown) (no date) (unknown) All (no value) (units unknown) (unknown) Result panel 155 (unknown) (no date) (unknown) All (no value) (units unknown) (unknown) Result panel 156 (unknown) (no date) (unknown) All (no value) (units unknown) (unknown) Result panel 157 (unknown) (no date) (unknown) All (no value) (units unknown) (unknown) Result panel 158 (unknown) (no date) (unknown) All (no value) (units unknown) (unknown) Result panel 159 (unknown) (no date) (unknown) All (no value) (units unknown) (unknown) Result panel 160 (unknown) (no date) (unknown) All (no value) (units unknown) (unknown) Result panel 161 (unknown) (no date) (unknown) All (no value) (units unknown) (unknown) Result panel 162 (unknown) (no date) (unknown) All (no value) (units unknown) (unknown) Result panel 163 (unknown) (no date) (unknown) All (no value) (units unknown) (unknown) Result panel 164 (unknown) (no date) (unknown) All (no value) (units unknown) (unknown) Result panel 165 (unknown) (no date) (unknown) All (no value) (units unknown) (unknown) Result panel 166 (unknown) (no date) (unknown) All (no value) (units unknown) (unknown) Result panel 167 (unknown) (no date) (unknown) All (no value) (units unknown) (unknown) Result panel 168 (unknown) (no date) (unknown) All (no value) (units unknown) (unknown) Result panel 169 (unknown) (no date) (unknown) All (no value) (units unknown) (unknown) Result panel 170 (unknown) (no date) (unknown) All (no value) (units unknown) (unknown) Result panel 171 (unknown) (no date) (unknown) All (no value) (units unknown) (unknown) Result panel 172 (unknown) (no date) (unknown) All (no value) (units unknown) (unknown) Result panel 173 (unknown) (no date) (unknown) All (no value) (units unknown) (unknown) Result panel 174 (unknown) (no date) (unknown) All (no value) (units unknown) (unknown) Result panel 175 (unknown) (no date) (unknown) All (no value) (units unknown) (unknown) Result panel 176 (unknown) (no date) (unknown) All (no value) (units unknown) (unknown) Result panel 177 (unknown) (no date) (unknown) All (no value) (units unknown) (unknown) Result panel 178 (unknown) (no date) (unknown) All (no value) (units unknown) (unknown) Result panel 179 (unknown) (no date) (unknown) All (no value) (units unknown) (unknown) Result panel 180 (unknown) (no date) (unknown) All (no value) (units unknown) (unknown)
[2023-06-04 11:26] LABS: BASOPHILS % (AUTO) 0.6 %; EOSINOPHILS % (AUTO) 0.6 %; HCT - HEMATOCRIT 34.8 % (42.0-52.0); HGB - HEMOGLOBIN 11.2 g/dL (14.0-18.0); LYMPHOCYTES % (AUTO) 20.7 %; MEAN CORPUSCULAR HEMOGLOBIN 26.9 pg (27.0-31.0); MEAN CORPUSCULAR HGB CONC 32.2 g/dL (32.0-36.0); MEAN CORPUSCULAR VOLUME 83.5 fL (80.0-94.0); MEAN PLATELET VOLUME 8.4 fL (7.4-11.4); MONOCYTES # (AUTO) 0.5 10^3/uL (0.0-1.0); MONOCYTES % (AUTO) 10.2 %; NEUTROPHILS # (AUTO) 3.2 10^3/uL (1.5-6.6); NEUTROPHILS % (AUTO) 67.5 %; PLT - PLATELET COUNT 257 10^3/uL (130-450); RED BLOOD COUNT 4.17 10^6/uL (4.70-6.10); RED CELL DISTRIBUTION WIDTH 14.5 % (12.0-15.0); WHITE BLOOD COUNT 4.8 x10^3/uL (4.8-10.8)
--- NOTE | 2023-06-04 11:27 | CT Report ---
PROCEDURE: Head W/O Stroke Protocol INDICATIONS: Vision changes, facial weakness TECHNIQUE: Noncontrast 4.5 mm thick angled axial sections acquired from the foramen magnum to the vertex, with c oronal reformats. For radiation dose reduction, the following was used: automated exposure control, adjustment of mA and/or kV according to patient size. COMPARISON: None. FINDINGS: Image quality: Excellent. CSF spaces: Basal cisterns are patent. No extra-axial fluid collections. Ventricles are normal in size and shape. Brain: No midline shift. No intracranial masses or hemorrhage. Vital-white matter interface is norm al. Skull and face: Calvarium and visualized facial bones are intact, without suspicious lesions. Sinuses: Visualized sinuses and mastoids are clear. IMPRESSION: No acute intracranial pathology Discussed with Dr. Haile in the emergency room at 1019 hours [place] daylight time. This study fulfills neurological imaging criteria for inclusion or exclusion of acute stroke therapie s based on available published neurological imaging guidelines. Reviewed by: Tierra Strickland MD on 06/04/2023 10:25 AM [facility]ACK[facility] Approved by: Tierra Strickland MD on 06/04/2023 10:25 AM [facility]ACKERY Station ID: [id number]
[2023-06-04 11:46] LABS: ALBUMIN 3.3 g/dL (3.2-5.5); ALBUMIN/GLOBULIN RATIO 0.9 (1.0-2.2); ALKALINE PHOSPHATASE 50 IU/L (42-121); ALT ALANINE AMINOTRANSFERASE 14 IU/L (10-60); AST ASPARTATE AMINOTRANSFERASE 11 IU/L (10-42); BILIRUBIN,TOTAL 0.4 mg/dL (0.2-1.0); BUN - BLOOD UREA NITROGEN 18 mg/dL (6-20); CARBON DIOXIDE - CO2 27 mmol/L (21-32); CHLORIDE 109 mmol/L (101-111); CREATININE 1.1 mg/dL (0.6-1.2); ETOH - ETHANOL < 5.0 mg/dL; GFR - MDRD 67 (>89); GLUCOSE 100 mg/dL (70-100); LIPASE 66 U/L (22-51); POTASSIUM 3.7 mmol/L (3.5-5.0); SODIUM 142 mmol/L (135-145)
[2023-06-04] MEDS ORDERED: ACETAMINOPHEN 325 MG TABLET PO PRN (15:16)
[2023-06-04] MEDS ORDERED: SODIUM CHLORIDE FLUSH 0.9% 10 ML SYRINGE IVP PRN (15:16)
[2023-06-04] MEDS ORDERED: ONDANSETRON 4 MG/2 ML VIAL IVP PRN (15:16)
[2023-06-04] MEDS ORDERED: ALBUTEROL NEB 2.5 MG/3 ML INH PRN (15:30)
[2023-06-04] MEDS ORDERED: SODIUM CHLORIDE 0.9% 1,000 ML IV SCH (16:00)
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
--- NOTE | 2023-06-04 17:35 | MRI Report ---
PROCEDURE: ANGIO HEAD WO INDICATIONS: left facial droop left arm numbness TECHNIQUE: Noncontrast axial 3-D [id number] MR angiogram, with 3-dimensional maximum intensity projection (M IP) reformats of the internal carotid arteries and posterior circulation then performed. COMPARISON: None. FINDINGS: Image quality: Excellent. Anterior circulation: Intracranial internal carotid arteries demonstrate normal size and intralumina l flow signal. The flow within the paired anterior cerebral arteries is normal and symmetric. The f low within the middle cerebral arteries is normal and symmetric. The anterior communicating artery i s seen. No stenoses, occlusions, or aneurysms. Posterior circulation: The left vertebral artery is dominant. The right vertebral artery demonstrates antegrade flow to the level of the foramen magnum and is not otherwise visible. Posterior inferior c erebellar arteries are not well seen due to imaging artifact. The left vertebral artery continues as the basilar artery. The flow within the posterior cerebral arteries is normal and symmetric. No sten oses, occlusions, or aneurysms. IMPRESSION: 1. Incomplete imaging of the cerebellar circulation due to field of view. 2. There is suspicion of forward flow and a diminutive right vertebral artery at the foramen magnum a nd vascular patency of the right posterior inferior cerebellar artery is not well assessed. 3. No visible significant stenosis, occlusion, or aneurysm seen in the intracranial circulation. Reviewed by: Tierra Strickland MD on 06/04/2023 4:34 PM [facility]ACK[facility] Approved by: Tierra Strickland MD on 06/04/2023 4:34 PM [facility]ACKERY Station ID: [id number]
--- NOTE | 2023-06-04 17:42 | MRI Report ---
PROCEDURE: BRAIN W/WO INDICATIONS: L facial droop L arm numbness CONTRAST: gadavist 9.3ml TECHNIQUE: Noncontrast axial T1 spin echo, axial T2 fast spin echo, sagittal and axial FLAIR, coronal T2 fast sp in echo, axial gradient echo, axial diffusion and ADC through the brain. After the administration of contrast, axial and coronal T1 spin echo with fat saturation through the brain. COMPARISON: None. FINDINGS: Image quality: Excellent. CSF spaces: Basal cisterns are patent. No extra-axial fluid collections. Ventricles are normal in size and shape. Brain: No midline shift. No intracranial bleeds or masses. No abnormal intracranial enhancement. There is cerebral volume loss for age. There is periventricular white matter chronic small vessel is chemic change. The brainstem appears normal. Diffusion-weighted images demonstrate no acute ischemi c insults. No chronic ischemic insults. Normal intravascular flow voids are present. Skull and face: Calvarial marrow is normal in signal. Orbits appear normal. Sinuses: Sinuses and mastoids appear clear. IMPRESSION: 1. No MR evidence of acute ischemia. 2. Age-appropriate exam without explanation for symptoms. Reviewed by: Tierra Strickland MD on 06/04/2023 4:40 PM [place] Approved by: Tierra Strickland MD on 06/04/2023 4:40 PM AKDT Station ID: [id number]
--- NOTE | 2023-06-04 17:57 | PHARMACY PROGRESS NOTE ---
- Best Possible Medication History Admit Date and Time: 06/04/23 1516 Processed by: Pharmacy Medication History completed: Yes Patient Interview: Completed Secondary Source(s): Prescription bottles, Insurance records Patient states he has been on chronic prednisone therapy for many years due to an autoimmune inner ear disease. Patient also reports that he was recently prescribed trospium but has yet to machine pecan picker/start the medication. He is unsure if he will take it at all. Therefore, medication was left off the list. As the person ultimately responsible for medication therapy, providers are able to order a medication from an existing home medication list in [facility] via the "Reconcile Routine" prior to Confirmation of that medication by child support officer. Such practice is discouraged except when the physician, in their clinical judgment, deems that a medical need exists for a medication without regard to previous use.
[2023-06-04] MEDS ORDERED: traZODone 50 MG TABLET PO SCH (21:00)
[2023-06-04] MEDS: SODIUM CHLORIDE FLUSH 0.9% 10 ML SYRINGE IVP SCH ×2 (21:53→23:25)
--- NOTE | 2023-06-05 02:00 | Ultrasound Report ---
PROCEDURE: Carotid Doppler Complete INDICATIONS: L facial droop, L arm numbness TECHNIQUE: Color and pulse Doppler interrogation was performed of both carotid systems, with image documentation and velocity measurements. COMPARISON: None. FINDINGS: Right side: Brachial blood pressure: 136/80 mm Hg. Common carotid artery peak systolic velocity: 99 cm/sec. Internal carotid artery peak systolic velocity: 84 cm/sec. Internal carotid artery end diastolic velocity: 18 cm/sec. External carotid artery peak systolic velocity: 69 cm/sec. ICA/CCA peak systolic ratio: 0.9 . Vital scale imaging description: There is hypoechoic plaque within the proximal right carotid bulb. Percent internal carotid artery stenosis: Less than 50%.. Vertebral artery: Flow direction is antegrade. Left side: Brachial blood pressure: 138/74 mm Hg. Common carotid artery peak systolic velocity: 99 cm/sec. Internal carotid artery peak systolic velocity: 98 cm/sec. Internal carotid artery end diastolic velocity: 16 cm/sec. External carotid artery peak systolic velocity: 75 cm/sec. ICA/CCA peak systolic ratio: 1.0 . Vital scale imaging description: There is mild hypoechoic plaque in the carotid bulb. Percent internal carotid artery stenosis: Less than 50%.. Vertebral artery: Flow direction is antegrade. IMPRESSION: 1. In the right internal carotid artery, there is mild narrowing of less than 50% based on peak systo lic velocity criteria. 2. In the left internal carotid artery, there is mild narrowing of less than 50% based on peak systol ic velocity criteria. 3. Antegrade blood flow within the right vertebral artery. 4. Antegrade blood flow within the left vertebral artery. The estimate of stenosis included in the report of the imaging study was calculated using the [facility]-end orsed standards of carotid artery stenosis. Reviewed by: Wing Ramírez MD on 06/05/2023 1:58 AM PDT Approved by: Wing Ramírez MD on 06/05/2023 1:58 AM PDT Station ID: [id number]
[2023-06-05 05:33] LABS: HCT - HEMATOCRIT 34.2 % (42.0-52.0); HGB - HEMOGLOBIN 11.2 g/dL (14.0-18.0); MEAN CORPUSCULAR HEMOGLOBIN 27.3 pg (27.0-31.0); MEAN CORPUSCULAR HGB CONC 32.7 g/dL (32.0-36.0); MEAN CORPUSCULAR VOLUME 83.4 fL (80.0-94.0); MEAN PLATELET VOLUME 8.9 fL (7.4-11.4); RED BLOOD COUNT 4.1 10^6/uL (4.70-6.10); RED CELL DISTRIBUTION WIDTH 14.6 % (12.0-15.0); WHITE BLOOD COUNT 5.8 x10^3/uL (4.8-10.8)
[2023-06-05 06:09] LABS: % IRON SATURATION 15 % (20-50); BUN - BLOOD UREA NITROGEN 18 mg/dL (6-20); CALCIUM 8.5 mg/dL (8.5-10.3); CARBON DIOXIDE - CO2 26 mmol/L (21-32); CHLORIDE 112 mmol/L (101-111); CHOL/HDL RATIO 4.8 (<5.0); CHOLESTEROL 207 mg/dL; GFR - MDRD 74 (>89); GLUCOSE 103 mg/dL (70-100); HDL CHOLESTEROL 43 mg/dL; IRON 42 ug/dL (45-182); LDL CHOLESTEROL,CALCULATED 150 mg/dL; LDL/HDL RATIO 3.5 (<3.6); POTASSIUM 3.9 mmol/L (3.5-5.0); SODIUM 141 mmol/L (135-145); TOTAL IRON BINDING CAPACITY 276 ug/dL (250-450); TRANSFERRIN 197 mg/dL (180-329); TRIGLYCERIDES 71 mg/dL; VLDL CHOLESTEROL 14 mg/dL
[2023-06-05 06:28] LABS: FOLATE 19.18 ng/mL (5.90 - >24.8)
[2023-06-05] MEDS ORDERED: predniSONE 5 MG TABLET PO SCH (08:00)
[2023-06-05] MEDS ORDERED: TAMSULOSIN 0.4 MG CAPSULE PO SCH (09:00)
[2023-06-05] MEDS ORDERED: PREDNISONE 10 MG ORAL SCH (09:00)
[2023-06-05] MEDS ORDERED: ASPIRIN CHEW 81 MG TABLET PO SCH (09:00)
[2023-06-05] MEDS ORDERED: ASPIRIN EC 81 MG TABLET PO SCH (09:00)
[2023-06-05] MEDS: SODIUM CHLORIDE FLUSH 0.9% 10 ML SYRINGE IVP SCH (09:36)
--- NOTE | 2023-06-05 11:13 | Discharge Plan ---
Discharge Plan Problem Reviewed?: Yes Disposition: Home, Self Care Condition: Stable Prescriptions: Aspirin Chewable [St Tawanda Aspirin] 162 mg PO DAILY #60 tab Ezetimibe [Zetia] 10 mg PO QD #30 tablet Diet: Cardiac Activity Restrictions: Activity as Tolerated Shower Restrictions: No Driving Restrictions: No Instruction Topics: Meds Cholesterol, Food Cholesterol, Foods Heart Healthy Health Concerns: You were brought into the hospital to evaluate numbness and tingling of your left arm and left face. The work-up showed that you had a TIA. There was no stroke seen on imaging by CT scan or MRI. The carotid Doppler and blood vessels in your brain showed less than 50% blockages. The Echo images of your heart showed that you have no clots and no intra-cardiac shunt. You are being discharged home with recommendation to increase your 1 baby aspirin daily to take 2 baby aspirin every morning. Also we found that your cholesterol level is high. The LDL cholesterol, which creates plaque on blood vessels, should be less than 70 and your's was 150. We discussed your diet and you should be eating less ice cream and less cheeses. Because you have a statin intolerance, you are being started on a cholesterol- lowering medicine called Zetia. Take 1 tablet daily. The new prescription was electronically sent to your [facility] pharmacy in [place]. You should have your fasting cholesterol level checked again in 3 to 6 months and the goal would be an LDL less than 70 for you. Regarding the other symptoms of fatigue, shortness of breath and deconditioning, you should see your primary care doctor, discuss this, and testing for coronary disease is a good idea, with a stress test, because of your very strong family history of atherosclerotic heart disease. Your PCP can order the stress test. If you fail the stress test, you would be referred to a Cartographic Engineer. I recommend Dr. Kc. Plan of Treatment: As above. Care Goals: Improvement in symptoms and stabilization are the goals. Assessment: The patient understands and is agreeable with the plan. Additional Instructions or Follow Up instructions: If you have new or worsening symptoms, call your PCP for advice, or come to the ER. No Smoking: If you smoke, Please STOP! Call for help. Follow-up with: LOUIE MITCHELL ARNP [Primary Care Provider] -
[2023-06-05 12:17] VITALS: BP 136/76; O2SAT 99
--- NOTE | 2023-06-05 13:51 | DISCHARGE SUMMARY ---
Discharge Summary Condition at Discharge: Stable Discharge Disposition: 01 Home, Self Care - ALLERGIES Allergies/Adverse Reactions: Allergies Allergy/AdvReac Type Severity Reaction Status Date / Time Iodine and Iodide Containing Allergy Anaphylaxis Verified 06/04/23 10:55 Produc shellfish derived Allergy Anaphylaxis Verified 06/04/23 10:55 Sulfa (Sulfonamide Allergy Anaphylaxis Verified 06/04/23 10:55 Antibiotics) venlafaxine Allergy Anaphylaxis Verified 06/04/23 10:55 - MEDICATIONS Home Medications: Ambulatory Orders Medication Instructions Recorded Confirmed Albuterol Sulfate [Proair 2 inh INH Q4HR PRN 08/13/18 06/04/23 Respiclick] Trazodone HCl 150 mg PO HS 08/13/18 06/04/23 Tadalafil [Cialis] 5 mg PO DAILY PRN 06/04/23 06/04/23 Tamsulosin [Flomax] 0.4 mg PO QPM 06/04/23 06/04/23 predniSONE [Deltasone] 5 mg PO DAILY 06/04/23 06/04/23 Aspirin Chewable [St Tawanda 162 mg PO DAILY #60 tab 06/05/23 Aspirin] Ezetimibe [Zetia] 10 mg PO QD #30 tablet 06/05/23 - LABS Result Diagrams: 06/05/23 05:16 06/05/23 05:16
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
[2023-06-05] MEDS ORDERED: ATORVASTATIN 40 MG TABLET PO SCH (21:00)
== END 2023-06-05 12:00 | disposition home or self-care (01) ==
LOC: EDUNIT# → ED 10:51 → MS2 15:16
PROVIDERS: ADMIT Internal Medicine; ATTEND Internal Medicine
DX: G45.9 Transient cerebral ischemic attack, unspecified (principal); D50.9 Iron deficiency anemia, unspecified; E86.0 Dehydration; E78.5 Hyperlipidemia, unspecified; F41.9 Anxiety disorder, unspecified; F32.9 Major depressive disorder, single episode, unspecified; M54.50 Low back pain, unspecified; Z82.49 Family history of ischemic heart disease and other diseases of the circulatory system
CPT/HCPCS: 36415; 70450; 70544; 70553; 80048; 80053; 80061; 82607; 82746; 83540; 83690; 84466; 85025; 85027; 93005; 93306; 93880; 96360; 99284; 99285; A9270; A9585; G0378; G0480; J7512; 80320; 83721

== ENCOUNTER 2023-12-18 14:20 | Outpatient (CLI) | payer MEDICARE | END 2023-12-18 23:59 | disposition EMS.NT | LOC: EMS 14:20 | DX: R55 Syncope and collapse (principal) ==